=== PATIENT | female | born 1955 | race Caucasian/White ===

== ENCOUNTER 2020-04-09 12:29 | Emergency (ER) | payer MEDICARE, SELFPAY ==
--- NOTE | 2020-04-09 12:39 | ED_ITS ---
HPI - Extremity Injury (Lower) General Chief Complaint: Fall Stated Complaint: slipped on boat, left knee wound and pain Time Seen by Provider: 04/09/20 12:38 History of Present Illness HPI Narrative: 65-year-old woman with a history of hypothyroidism was standing on her boat adjusting the hitch when she slipped and suffered a large laceration to the medial posterior part of her left knee. She is not complaining of any bony tenderness nor did she complain of twisting her knee knee pain ankle pain or hip pain. Related Data Previous Rx's Medication Instructions Recorded cephalexin 500 mg PO TID #21 cap 04/09/20 oxycodone-acetaminophen 1 tab PO Q6H PRN #20 tab 04/09/20 polyethylene glycol 3350 [ClearLax] 17 gram PO DAILY PRN #238 gram 04/09/20 Allergies Allergy/AdvReac Type Severity Reaction Status Date / Time No Known Drug Allergies Allergy Verified 04/09/20 12:47 Review of Systems Review of Systems Narrative: Pertinent positive and negative findings as per HPI Remainder of review of systems is otherwise unremarkable for Constitutional: Fevers, chills, weakness ENT: No sore throat, neck pain, ear pain CV: Chest pain, palpitations, dyspnea on exertion Respiratory: Cough, wheeze, dyspnea GI: Nausea, vomiting, diarrhea, change in bowel habits, black or bloody stools : Dysuria, hematuria, flank pain MS: Muscle weakness, numbness, joint swelling or warmth Skin: Rashes, nonhealing lesions Neuro: Syncope, dizziness, tingling Patient History Medical History (Updated 04/09/20 @ 14:20 by Palmira Craig MD) Hypothyroidism (acquired) (Acute) Social History Smoking Status: Never smoker Exam Narrative Exam Narrative: General: Alert appropriate in no acute distress Respiratory: Able to speak in full sentences, no obvious respiratory distress Skin: No obvious rashes, warm and dry Neurologic: Grossly intact no obvious asymmetries or abnormalities Psych, appropriate insight and affect, cooperative Extremity: Large full-thickness skin flap that involves essentially the entire crease of the popliteal fossa. She has a minor abrasion mid posterior left calf and lateral aspect of her right thigh. Initial Vital Signs Initial Vital Signs: Vital Signs Temperature 98.3 F 04/09/20 12:42 Pulse Rate 83 04/09/20 12:42 Respiratory Rate 18 04/09/20 12:42 Blood Pressure 160/85 H 04/09/20 12:42 Pulse Oximetry 100 04/09/20 12:42 Procedures Laceration Repair Right popliteal fossa: Site: lower extremity Side (If applicable): right Size (cm): 19 Description: flap Depth: simple, single layer (Full-thickness/large flap) Local Anesthetic: lidocaine 1% and with bicarb Amount of anesthesia used (mL): 15 Pre-repair: wound explored, irrigated extensively and deep structures intact Skin layer closed with: nylon Size (cm): 3-0 Technique: running Subcutaneous layer closed with: chromic gut Size: 4-0 Number of sutures: 5 Technique: other (Horizontal mattress) Course Orders Ordered: Discontinued Medications Bacitracin (Bacitracin) 5 applic TOP NOW ONE Stop: 04/09/20 13:25 Last Admin: 04/09/20 14:06 Dose: 5 applic Documented by: MARI Cephalexin HCl (Keflex) 500 mg PO NOW ONE Stop: 04/09/20 13:25 Last Admin: 04/09/20 14:05 Dose: 500 mg Documented by: MARI Diphtheria/Tetanus/Acell Pertussis (Adacel) 0.5 ml IM .ONCE ONE Stop: 04/09/20 12:50 Last Admin: 04/09/20 12:56 Dose: 0.5 ml Documented by: MARI Ibuprofen (Advil) 400 mg PO NOW ONE Stop: 04/09/20 12:50 Last Admin: 04/09/20 12:57 Dose: 400 mg Documented by: MARI Lidocaine/Sodium Bicarbonate (Buffered Lidocaine 10 Ml Syr) 20 ml INJ NOW ONE Stop: 04/09/20 12:50 Last Admin: 04/09/20 13:00 Dose: 20 ml Documented by: MARI Ondansetron HCl (Zofran Odt) 4 mg SL NOW ONE Stop: 04/09/20 12:51 Last Admin: 04/09/20 13:00 Dose: 4 mg Documented by: MARI Oxycodone/Acetaminophen (Percocet 5/325) 2 tab PO NOW ONE Stop: 04/09/20 12:50 Last Admin: 04/09/20 12:57 Dose: 2 tab Documented by: MARI Vital Signs Vital signs: Vital Signs - 8 hr 04/09/20 12:42 Temperature 98.3 F Pulse Rate 83 Respiratory Rate 18 Blood Pressure 160/85 H Pulse Oximetry 100 MDM - Extremity Injury (Lower) MDM Narrative Medical decision making narrative: 65-year-old woman who slid down cot the popliteal fossa crease on the edge of something on their boat and sheared off a large flap of the posterior thigh. Extensive irrigation because so much of the thigh fascia was exposed. Fortunately it does not involve muscle or tendon. She is given a tetanus shot and placed on Keflex. Subcutaneous as well as running superficial sutures were used to close the wound with excellent hemostasis and cosmetic result. Explained expected course of healing and will have her follow-up with her doctors back in [place] to have the sutures removed. She is safe for home discharge Discharge Plan Departure Patient Disposition: Home Clinical Impression: Laceration Instructions: DI for Laceration Repair -- Complex Activity Restrictions/Additional Instructions: I am sorry your vacation had to end like this but I suppose it is better at the end than the beginning. You have a 19 cm laceration on the back of your knee. Fortunately, the laceration does not involve any tendons, fascia or muscle. There are deep sutures to help with healing that will take between 4 and 6 weeks to dissolve. The running suture that you can see on the surface will need to be removed on or about April 23. You can go to an urgent care, and emergency department or your primary care physician's office. Because the wound is so large it was copiously irrigated. Unfortunately the risk for infection is real. I have placed you on cephalexin/Keflex and I would like you to complete a 7 day course of this. If it feels like the area is getting more red, more tender there is any discharge you develop any fevers or have worsening symptoms of infection you need to be seen immediately. With a wound this large and your day and a half driving time back to [place], your risk for blood clot is certainly higher as well. I encourage you to get up and out of the car frequently and do some simple gentle movement. Simply walking from the car to the bathroom and back is adequate. You are going to hurt more tomorrow, there are a number of other bruises that you have not yet noticed. Using 400 mg of ibuprofen (2 [id number] pills) and 1 Tylenol every 6 hours can be very helpful in controlling pain. For more severe pain using 400 mg of ibuprofen and 1 or 2 Percocet every 6 hours. Percocet is a narcotic and will make you a bit fuzzy. It will also make you constipated. I have given you a prescription for MiraLax and encourage you to use a full cap full of the powder in a large glass of water/coffee/tea every morning if you have used the Percocet. I hope you heal well and your drive home is uneventful. Prescriptions: New cephalexin 500 mg capsule 500 mg PO TID Qty: 21 RF: 0 polyethylene glycol 3350 [ClearLax] 17 gram/dose powder 17 gram PO DAILY PRN (Reason: constipation) Qty: 238 RF: 0 oxycodone-acetaminophen 5-325 mg tablet 1 tab PO Q6H PRN (Reason: pain) Qty: 20 RF: 0
[2020-04-09 12:42] VITALS: BP 160/85; PULSE 83; RESP 18; TEMP 36.8; O2SAT 100; BMI 24.2
[2020-04-09] MEDS: TET,DIPH,PERTUSS(ACELL),VAC/PF 0.5 ML SYRINGE IM (12:56)
[2020-04-09] MEDS: IBUPROFEN 400 MG TABLET PO (12:57)
[2020-04-09] MEDS: OXYCODONE/ACETAMINOPHEN 5/325 TABLET 2 TAB PO (12:57)
[2020-04-09] MEDS: ONDANSETRON 4 MG ODT SL (13:00)
[2020-04-09] MEDS: LIDO 1%/SOD BICARB 8.4% (10ML) 10 ML SYRINGE 20 ML INJ (13:00)
--- NOTE | 2020-04-09 13:06 | PC.NURSE ---
pt medicated as per mdo wound dressing applied no bleeding noted as this time
--- NOTE | 2020-04-09 13:47 | PC.NURSE ---
at bedside performing suture repair of wound
[2020-04-09] MEDS: cephALEXin 250 MG CAPSULE 500 MG PO (14:05)
[2020-04-09] MEDS: BACITRACIN OINT 0.9 GM PCKT 5 APPLIC TOP (14:06)
--- NOTE | 2020-04-09 14:08 | PC.NURSE ---
pt medicated as per mdo tolorating po intake. pt sitting up in bed wound dressing with kate wrap in tact
[2020-04-09 14:36] VITALS: BP 144/76; PULSE 86; RESP 18; O2SAT 99
--- NOTE | 2020-04-09 14:36 | PC.NURSE ---
pt ambualtory to bathroom steady gait
== END 2020-04-09 14:42 | disposition home or self-care (01) ==
PROVIDERS: Emergency Provider Emergency Medicine
DX: S81.012A Laceration without foreign body, left knee, initial encounter (principal); W19.XXXA Unspecified fall, initial encounter; Z23 Encounter for immunization
CPT/HCPCS: 12005; 90471; 99283; 90715